=== PATIENT | male | born 2000 | race Caucasian/White ===

== ENCOUNTER 2019-01-24 13:52 | Emergency (ER) | payer SELFPAY ==
[~2019-01-24] VITALS: Ht 172.7 cm; Wt 72.7 kg
[2019-01-24 13:57] VITALS: TEMP 99.3
[2019-01-24 14:32] LABS: COLLECTION METHOD CLEAN CATCH
[2019-01-24 14:38] LABS: MUCOUS Present /lpf; PH 6 (5-8); SQUAMOUS EPITHELIAL None Seen /hpf; URINE APPEARANCE Clear; URINE BACTERIA None Seen /hpf; URINE BILIRUBIN Negative (NEGATIVE); URINE BLOOD Negative (NEGATIVE); URINE COLOR Yellow; URINE GLUCOSE Negative (NEGATIVE); URINE KETONE Negative (NEGATIVE); URINE LEUKOCYTE ESTERASE Negative (NEGATIVE); URINE NITRATE Negative (NEGATIVE); URINE PROTEIN(semi-quant) Negative (NEGATIVE); URINE RBC 0-2 /hpf; URINE UROBILINOGEN Negative (NEGATIVE)
[2019-01-24 14:58] LABS: BASO % 0.3 % (0.0-2.0); EOS # 0.1 (0.0-0.7); EOS % 1.1 % (0-4.0); GRAN # 7.7 (1.4-6.5); GRAN % 77.4 % (42.2-75.2); HEMATOCRIT 48.1 % (36.0-47.0); HEMOGLOBIN 16.2 g/dl (12.5-16.1); LYMPH # 1.3 (1.2-3.4); LYMPH % 12.9 % (20.0-51.0); MEAN CELL VOLUME 87 fl (80.0-95.0); MEAN CORPUSCULAR HEMOGLOBIN 29 pg (26.0-32.0); MEAN CORPUSCULAR HGB CONC 34 g/dl (33.0-37.0); MEAN PLATELET VOLUME 9.1 fl (7.4-10.4); MONO # 0.8 (0.1-0.6); MONO % 7.9 % (1.7-9.3); PLATELET COUNT 313 K/mm3 (130-400); RED BLOOD COUNT 5.56 M/mm3 (4.20-5.60); REDCELL DISTRIBUTION WIDTH-CV 12.9 % (11.5-14.5)
[2019-01-24 15:08] LABS: ALANINE AMINOTRANSFERASE 40 U/L (21-72); ALBUMIN 4.8 gm/dL (3.5-5.0); ALKALINE PHOSPHATASE 101 U/L (50-136); ANION GAP 11 mmol/L (7-16); AST,SGOT 43 U/L (15-37); BILIRUBIN,TOTAL 0.9 mg/dL (0.0-1.0); BLOOD UREA NITROGEN 13 mg/dL (9-20); C-REACTIVE PROTEIN < 0.5 mg/dL (0.0-0.9); CALCIUM 10.2 mg/dL (8.4-10.2); CARBON DIOXIDE 28 mmol/L (22-30); CHLORIDE 104 mmol/L (98-107); CREATININE, serum 1.07 (0.66-1.25); GLUCOSE 99 mg/dL (74-106); SODIUM 143 mmol/L (137-145)
[2019-01-24] MEDS ORDERED: PHENERGAN 25 TA25 MG PO (16:21)
[2019-01-24 16:30] VITALS: BP 127/67; PULSE 73
== END 2019-01-24 16:45 | disposition home or self-care (01) ==
LOC: COL.ER 13:52
PROVIDERS: Family Medicine
DX: R10.32 Left lower quadrant pain (principal); R11.10 Vomiting, unspecified
CPT/HCPCS: J1170; J1885; J2405; J7030